=== PATIENT | female | born 1990 | race American Indian/Alaskan Native ===

== ENCOUNTER 2023-09-15 08:00 | Outpatient (CLI) | payer OTHER ==
[2023-09-15 17:08] LABS: BILIRUBIN,URINE NEGATIVE (NEGATIVE); GLUCOSE, URINE (UA) NEGATIVE (NEGATIVE); KETONES,URINE (UA) NEGATIVE (NEGATIVE); LEUKOCYTE ESTERASE, URINE NEGATIVE (NEGATIVE); NITRITE,URINE NEGATIVE (NEGATIVE); OCCULT BLOOD,URINE NEGATIVE (NEGATIVE); PROTEIN,URINE NEGATIVE (NEGATIVE); UROBILINOGEN,URINE 0.2 (NORMAL) E.U./dL (NORMAL)
[2023-09-15 17:15] LABS: CLARITY,URINE CLEAR (CLEAR)
[2023-09-15 17:53] LABS: BACTERIA,URINE None Seen /HPF (None Seen); RBC,URINE 0-5 /HPF (0-5); SQUAMOUS EPITHELIAL CELL,UR FEW Squamous (<= Few); WBC,URINE 0-3 /HPF (0-5)
[2023-09-15 17:54] LABS: AMORPHOUS SEDIMENT,UR Rare /LPF
== END 2023-09-15 23:59 | disposition home or self-care (01) ==
LOC: LAB.WC 08:00
PROVIDERS: ATTEND Obstetrics & Gynecology
DX: Z34.90 Encounter for supervision of normal pregnancy, unspecified, unspecified trimester (principal)
CPT/HCPCS: 81001; 87086

== ENCOUNTER 2023-10-02 18:36 | Outpatient (CLI) | payer OTHER ==
--- NOTE | 2023-10-03 14:42 | Ultrasound Report ---
PROCEDURE: OB Anatomy Scan INDICATIONS: SUPERVISION OF OUTSIDE/PRIOR DATING DATA: Last menstrual period (LMP): 05/11/2023. LMP-based estimated date of delivery (COMPA): 02/15/2024. First dating scan (date and location): 08/19/2023. Estimated date of delivery (COMPA) from first dating scan: 02/14/2024. The below data below was generated using the ultrasound COMPA of 02/14/2024 TECHNIQUE: Real-time scanning was performed of the fetus, with image documentation and biometric measurements. COMPARISON: None. FINDINGS: General: A single living intrauterine gestation is present. Presentation: Variable Placenta: Placental position is anterior, without previa. Amniotic fluid index: 15 cm, within normal limits for gestational age. heart rate: 150 beats per minute. Maternal cervical canal: 3.3 cm long; normal length is 2.5 cm or more. biometrics: Biparietal diameter: 5.0 cm 21 weeks 2 days 72nd percentile Head circumference: 19.1 cm 21 weeks 3 days 71st percentile Abdominal circumference: 17.3 cm 22 weeks 2 days a 7th percentile Femur length: 3.7 cm 21 weeks 4 days 73rd percentile Estimated gestational age from initial scan: 20 weeks 5 days Composite gestational age from present scan: 21 weeks 2 days Estimated weight and percentile: 458 g 95th percentile Measurement variability in biometric dating: +/- 10 days from 12-20 weeks gestation, +/- 2 weeks from 20-30 weeks gestation, +/- 3 weeks at 30 weeks gestation or later. Anatomic survey: Neuro: Ventricles are normal at less than 10 mm. Cisterna magna is normal at 3-11 mm. Cerebellum i s normal in size and morphology. Face: Nose and lips, facial profile are not well seen. Spine: Not well seen. Heart: 4-chambered heart is present, with normal ventricular outflow tracts. Diaphragm: Diaphragm is intact. Stomach: Left-sided stomach is present. Kidneys: No hydronephrosis. Normal is less than 5 mm in 2nd trimester, less than 7 mm in 3rd trimester. Cord: 3 vessel cord has orthotopic insertion. Bladder: Normal in size. Extremities: All 4 extremities are visualized. IMPRESSION: Single live intrauterine with ultrasound gestational age today of 21 weeks 2 days. face as well as spine are suboptimally evaluated. Reviewed by: Carole Esquivel MD on 10/03/2023 2:41 PM PST Approved by: Carole Esquivel MD on 10/03/2023 2:41 PM PST Station ID: [id number]
== END 2023-10-02 18:37 | disposition home or self-care (01) ==
LOC: DI 18:36
PROVIDERS: ATTEND Obstetrics & Gynecology
DX: Z34.92 Encounter for supervision of normal pregnancy, unspecified, second trimester (principal)

== ENCOUNTER 2023-10-08 13:32 | Outpatient (CLI) | payer OTHER ==
[2023-10-08 13:54] LABS: BASOPHILS # (AUTO) 0.1 10^3/uL (0.0-0.1); BASOPHILS % (AUTO) 0.5 %; EOSINOPHILS # (AUTO) 0.3 10^3/uL (0.0-0.7); EOSINOPHILS % (AUTO) 2.3 %; HCT - HEMATOCRIT 34.1 % (37.0-47.0); HGB - HEMOGLOBIN 10.7 g/dL (12.0-16.0); LYMPHOCYTES # (AUTO) 2.6 10^3/uL (1.5-3.5); MEAN CORPUSCULAR HEMOGLOBIN 22.4 pg (27.0-31.0); MEAN CORPUSCULAR HGB CONC 31.4 g/dL (32.0-36.0); MEAN CORPUSCULAR VOLUME 71.5 fL (81.0-99.0); MEAN PLATELET VOLUME 12.3 fL (7.9-10.8); MONOCYTES # (AUTO) 0.5 10^3/uL (0.0-1.0); MONOCYTES % (AUTO) 3.5 %; NEUTROPHILS # (AUTO) 9.5 10^3/uL (1.5-6.6); NEUTROPHILS % (AUTO) 73.2 %; PLT - PLATELET COUNT 268 10^3/uL (130-450); RED BLOOD COUNT 4.77 10^6/uL (4.20-5.40); RED CELL DISTRIBUTION WIDTH 16.1 % (12.0-15.0)
[2023-10-08 20:37] LABS: CHLAMYDIA TRACHOMATIS DNA NEGATIVE (NEGATIVE); NEISSERIA GONORRHOEAE DNA NEGATIVE (NEGATIVE); TRICHOMONAS VAGINALIS DNA NEGATIVE (NEGATIVE)
[2023-10-09 07:09] LABS: HBsAG SCREEN Negative (Negative); RPR Non Reactive (Non Reactive)
[2023-10-09 08:10] LABS: HCV AB Non Reactive (Non Reactive)
[2023-10-09 09:10] LABS: HIV SCREEN 4TH GENERATION Non Reactive (Non Reactive)
[2023-10-11 13:10] LABS: VARICELLA-ZOSTER AB IGG 2642 index (Immune >165)
== END 2023-10-08 13:33 | disposition home or self-care (01) ==
LOC: LAB 13:32
PROVIDERS: ATTEND Obstetrics & Gynecology
DX: Z34.90 Encounter for supervision of normal pregnancy, unspecified, unspecified trimester (principal)
CPT/HCPCS: 36415; 85025; 86592; 86762; 86787; 86803; 86850; 86900; 86901; 87340; 87389; 87491; 87591; 87661

== ENCOUNTER 2023-10-12 07:22 | Outpatient (CLI) | payer OTHER ==
--- NOTE | 2023-10-12 17:11 | Ultrasound Report ---
PROCEDURE: OB Follow up INDICATIONS: SUPERVISION OF OUTSIDE/PRIOR DATING DATA: Last menstrual period (LMP): 05/11/2023. LMP-based estimated date of delivery (COMPA): 02/15/2024. First dating scan (date and location): 08/19/2023, [facility]. Estimated date of delivery (COMPA) from first dating scan: 02/14/2024. TECHNIQUE: Real-time scanning was performed of the fetus, with image documentation and biometric measurements. Endovaginal scanning: Not performed. COMPARISON: None. FINDINGS: General: A single living intrauterine gestation is present. Presentation: head to maternal right Placenta: Placental position is anterior, without previa. Amniotic fluid index: 16.2 cm, within normal limits for gestational age. The largest pocket is 4.7 c m. heart rate: 150 beats per minute. Maternal cervical canal: 3.2 cm long; normal length is 2.5 cm or more. Other: The nose and lips have a normal appearance. The spine has a normal appearance. IMPRESSION: 1. Normal sonographic appearance of the nose, lips, and spine. Reviewed by: Jasmyne Delgado MD on 10/12/2023 5:09 PM PST Approved by: Jasmyne Delgado MD on 10/12/2023 5:09 PM PST Station ID: [id number]
== END 2023-10-12 07:23 | disposition home or self-care (01) ==
LOC: DI 07:22
PROVIDERS: ATTEND Obstetrics & Gynecology
DX: Z34.90 Encounter for supervision of normal pregnancy, unspecified, unspecified trimester (principal)

== ENCOUNTER 2023-11-10 11:22 | Outpatient (CLI) | payer OTHER ==
[2023-11-10 18:15] LABS: HCT - HEMATOCRIT 32.5 % (37.0-47.0); HGB - HEMOGLOBIN 9.9 g/dL (12.0-16.0); MEAN CORPUSCULAR HEMOGLOBIN 22.7 pg (27.0-31.0); MEAN CORPUSCULAR HGB CONC 30.5 g/dL (32.0-36.0); MEAN CORPUSCULAR VOLUME 74.4 fL (81.0-99.0); MEAN PLATELET VOLUME 12.3 fL (7.9-10.8); RED BLOOD COUNT 4.37 10^6/uL (4.20-5.40); RED CELL DISTRIBUTION WIDTH 16.3 % (12.0-15.0); WHITE BLOOD COUNT 12.2 x10^3/uL (4.8-10.8)
== END 2023-11-10 11:23 | disposition home or self-care (01) ==
LOC: LAB.N 11:22
PROVIDERS: ATTEND Obstetrics & Gynecology
DX: Z34.90 Encounter for supervision of normal pregnancy, unspecified, unspecified trimester (principal)
CPT/HCPCS: 36415; 82950; 85027

== ENCOUNTER 2023-11-26 10:54 | Outpatient (CLI) | payer OTHER ==
[2023-11-26 11:06] LABS: BASOPHILS % (AUTO) 0.2 %; EOSINOPHILS # (AUTO) 0.1 10^3/uL (0.0-0.7); HGB - HEMOGLOBIN 10.9 g/dL (12.0-16.0); LYMPHOCYTES # (AUTO) 2.7 10^3/uL (1.5-3.5); MEAN CORPUSCULAR HEMOGLOBIN 22.8 pg (27.0-31.0); MEAN CORPUSCULAR HGB CONC 31.1 g/dL (32.0-36.0); MEAN CORPUSCULAR VOLUME 73.1 fL (81.0-99.0); MEAN PLATELET VOLUME 11.1 fL (7.9-10.8); MONOCYTES # (AUTO) 0.7 10^3/uL (0.0-1.0); MONOCYTES % (AUTO) 5.2 %; NEUTROPHILS # (AUTO) 9.7 10^3/uL (1.5-6.6); NEUTROPHILS % (AUTO) 72.9 %; NRBC ABSOLUTE COUNT (AUTO) 0.02 x10^3/uL; NUCLEATED RED BLOOD CELLS AUTO 0.1 /100WBC; PLT - PLATELET COUNT 228 10^3/uL (130-450); RED BLOOD COUNT 4.79 10^6/uL (4.20-5.40); WHITE BLOOD COUNT 13.4 x10^3/uL (4.8-10.8)
[2023-11-26 11:57] LABS: FERRITIN 82.5 ng/mL (11.0-306.8)
== END 2023-11-26 10:55 | disposition home or self-care (01) ==
LOC: LAB 10:54
PROVIDERS: ATTEND Obstetrics & Gynecology
DX: O99.013 Anemia complicating pregnancy, third trimester (principal); D56.1 Beta thalassemia
CPT/HCPCS: 36415; 82728; 83540; 85025

== ENCOUNTER 2024-01-06 11:47 | Outpatient (CLI) | payer OTHER ==
--- NOTE | 2024-01-06 13:49 | Ultrasound Report ---
PROCEDURE: OB Follow up INDICATIONS: IUGR OUTSIDE/PRIOR DATING DATA: Last menstrual period (LMP): 05/11/2023. LMP-based estimated date of delivery (COMPA): 02/05/2024. First dating scan (date and location): 08/19/2023. Estimated date of delivery (COMPA) from first dating scan: 02/14/2024. The below data below was generated using the ultrasound COMPA of 02/14/2024 TECHNIQUE: Real-time scanning was performed of the fetus, with image documentation and biometric measurements. Endovaginal scanning: Not performed. COMPARISON: OB ultrasound 10/12/2023 FINDINGS: General: A single living intrauterine gestation is present. Presentation: Cephalic Placenta: Placental position is anterior, without previa. Amniotic fluid index: 17.6 cm, within normal limits for gestational age. heart rate: 155 beats per minute. Maternal cervical canal: 3.9 cm long; normal length is 2.5 cm or more. biometrics: Biparietal diameter: 8.4 cm, 33 weeks 6 days, 32nd percentile Head circumference: 31.3 cm, 35 weeks 0 days, 28th percentile Abdominal circumference: 30.1 cm, 34 weeks 1 day, 45th percentile Femur length: 6.5 cm, 33 weeks 4 days, 21st percentile Estimated gestational age from initial scan: 34 weeks 3 days Composite gestational age from present scan: 34 weeks 1 day Estimated weight and percentile: 2334 g 33rd percentile Measurement variability in biometric dating: +/- 10 days from 12-20 weeks gestation, +/- 2 weeks from 20-30 weeks gestation, +/- 3 weeks at 30 weeks gestation or more. Other: Not applicable. IMPRESSION: 1.Single live intrauterine with appropriate interval growth. 2.Amniotic fluid index is within normal limits. Reviewed by: Paxton Norris MD on 01/06/2024 1:48 PM PDT Approved by: Paxton Norris MD on 01/06/2024 1:48 PM PDT Station ID: [id number]
== END 2024-01-06 11:48 | disposition home or self-care (01) ==
LOC: DI 11:47
PROVIDERS: ATTEND Obstetrics & Gynecology
DX: Z34.93 Encounter for supervision of normal pregnancy, unspecified, third trimester (principal); Z87.59 Personal history of other complications of pregnancy, childbirth and the puerperium

== ENCOUNTER 2024-02-02 13:23 | Outpatient (CLI) | payer OTHER ==
[2024-02-02 13:42] LABS: HCT - HEMATOCRIT 33.6 % (37.0-47.0); HGB - HEMOGLOBIN 10.3 g/dL (12.0-16.0); MEAN CORPUSCULAR HEMOGLOBIN 22.8 pg (27.0-31.0); MEAN CORPUSCULAR HGB CONC 30.7 g/dL (32.0-36.0); MEAN CORPUSCULAR VOLUME 74.5 fL (81.0-99.0); MEAN PLATELET VOLUME 13.2 fL (7.9-10.8); RED BLOOD COUNT 4.51 10^6/uL (4.20-5.40); RED CELL DISTRIBUTION WIDTH 15.2 % (12.0-15.0)
[2024-02-02 13:51] LABS: ALBUMIN 3.3 g/dL (3.2-5.5); ALBUMIN/GLOBULIN RATIO 1.3 (1.0-2.2); BILIRUBIN,TOTAL 0.6 mg/dL (0.2-1.0); CALCIUM 9.2 mg/dL (8.5-10.3); CREATININE 0.7 mg/dL (0.6-1.3); POTASSIUM 4.3 mmol/L (3.5-4.5); TOTAL PROTEIN 5.9 g/dL (6.4-8.9)
[2024-02-02 14:05] LABS: CREATININE,URINE 27.7 mg/dL; TOTAL PROTEIN,URINE TIMED < 4 mg/dL
== END 2024-02-02 13:24 | disposition home or self-care (01) ==
LOC: LAB 13:23
PROVIDERS: ATTEND Obstetrics & Gynecology
DX: R03.0 Elevated blood-pressure reading, without diagnosis of hypertension (principal)
CPT/HCPCS: 36415; 80053; 82570; 84156; 85027

== ENCOUNTER 2024-02-03 04:35 | Inpatient (IN) | payer OTHER ==
[2024-02-03] MEDS ORDERED: LACTATED RINGERS 1,000 ML IV PRN (06:47)
[2024-02-03] MEDS ORDERED: METHYLERGONOVINE 0.2 MG/ML VIAL IM PRN (06:47)
[2024-02-03] MEDS ORDERED: fentaNYL 100 MCG/2 ML VIAL IVP PRN (06:47)
[2024-02-03] MEDS ORDERED: LABETALOL 20 MG/4 ML SYRINGE IVP PRN ×3 (06:47)
[2024-02-03] MEDS ORDERED: hydrALAZINE INJ 20 MG/ML VIAL IVP PRN ×2 (06:47)
[2024-02-03] MEDS ORDERED: lidocaine 1% 20 ML MDV ID PRN (06:47)
[2024-02-03] MEDS ORDERED: OXYTOCIN 10 UNIT/ML VIAL IM PRN (06:47)
[2024-02-03] MEDS ORDERED: SODIUM CHLORIDE FLUSH 0.9% 10 ML SYRINGE IVP PRN (06:47)
[2024-02-03] MEDS ORDERED: TRANEXAMIC ACID IN NACL 1,000 MG/100 ML BAG IV PRN (06:47)
[2024-02-03] MEDS ORDERED: miSOPROStoL 200 MCG TABLET BC PRN (06:47)
[2024-02-03] MEDS ORDERED: miSOPROStoL 200 MCG TABLET PR PRN (06:47)
[2024-02-03] MEDS ORDERED: CARBOPROST TROMETHAMINE 250 MCG/ML VIAL IM PRN (06:47)
[2024-02-03] MEDS ORDERED: OXYTOCIN/SODIUM CHLORIDE 500 ML IV PRN (06:47)
[2024-02-03] MEDS ORDERED: NIFEdipine 10 MG CAPSULE PO PRN (06:47)
--- NOTE | 2024-02-03 06:58 | HISTORY & PHYSICAL EXAMINATION ---
Admit History - Visit Reason Visit Reason: Contractions - : 2 Parity: 1 Care: positive: [facility] - Mother's Labs Mother's Blood Type: positive: B Mother's RH: positive: Positive GBS: positive: Group B Step Negative Rubella Status: positive: Immune - Other Maternal History Other Maternal History: Med: B thalassemia triat Surg: [place] teeth Fam: Noncontributory Social: , denies FRED, AD - HPI Diagnosis/Indication for NST: labor Vital Signs Temperature 98.2 F 02/03/24 04:52 Heart Rate 68 02/03/24 04:52 Respiratory Rate 18 02/03/24 04:52 Blood Pressure 139/85 H 02/03/24 04:52 Temperature 98.2 F 02/03/24 04:52 Heart Rate 57 L 02/03/24 06:08 Respiratory Rate 16 02/03/24 06:08 Blood Pressure 133/71 H 02/03/24 06:08 O2 Saturation If not protocol: Oxygen Flow, liters/minute - NST Procedure EFM: 130s, moderate variability, positive 15x15 accelerations, no decelerations [place]: q4m Cat 1/NST reactive Performed and read 02/03/24 Meds/Allgy - Allergies Allergies/Adverse Reactions: Allergies Allergy/AdvReac Type Severity Reaction Status Date / Time amoxicillin AdvReac Intermediate Hives Verified 02/03/24 07:13 Physical - Abdominal Exam Vital Signs: Temp Pulse Resp BP Pulse Ox O2 Flow Rate 98.2 F 57 L 16 133/71 H 02/03/24 04:52 02/03/24 06:08 02/03/24 06:08 02/03/24 06:08 Contraction Frequency (min/apart): 4 Contraction Intensity: positive: Mild to moderate Uterine Resting Tone: positive: Soft - Monitoring Heart Rate Baseline: 130 Strip Review: positive: Category I - Presentation Presentation: positive: Vertex (EFW 3000g, placenta anterior) - Vaginal Exam Membranes: positive: Membranes intact Dilation (in cm): 6 Effacement (%): 100 Station: positive: -2 Cervical Position: positive: Midposition Plan for Labor - Plan For Labor I expect patient to be DC'd or transferred within 96 hours.: Yes Plan for Labor: 33yo at 38.2w by LMP consistent with 14w US admitted in active labor, also with gestational hypertension - Admit to FBP - CBC, CMP, T&S, PCR - complicated by beta thalassemia trait, history of IUGR, anemia - GBS negative, anticipate this morning. May have epidural as requested
[2024-02-03] MEDS ORDERED: SODIUM CHLORIDE FLUSH 0.9% 10 ML SYRINGE IVP SCH (07:00)
--- NOTE | 2024-02-03 08:57 | PHARMACY PROGRESS NOTE ---
- Best Possible Medication History Admit Date and Time: 02/03/24 0647 Processed by: Pharmacy Medications reviewed in ED?: No Patient Interview: Pt unable to participate Secondary Source(s): Insurance records (No fill data through [employer]) As the person ultimately responsible for medication therapy, providers are able to order a medication from an existing home medication list in [facility] via the "Reconcile Routine" prior to Confirmation of that medication by computer network support specialist. Such practice is discouraged except when the physician, in their clinical judgment, deems that a medical need exists for a medication without regard to previous use.
[2024-02-03 09:01] LABS: BASOPHILS # (AUTO) 0.1 10^3/uL (0.0-0.1); BASOPHILS % (AUTO) 0.4 %; EOSINOPHILS # (AUTO) 0.1 10^3/uL (0.0-0.7); EOSINOPHILS % (AUTO) 0.6 %; HCT - HEMATOCRIT 34.2 % (37.0-47.0); HGB - HEMOGLOBIN 10.4 g/dL (12.0-16.0); LYMPHOCYTES # (AUTO) 2.7 10^3/uL (1.5-3.5); LYMPHOCYTES % (AUTO) 19.1 %; MEAN CORPUSCULAR HEMOGLOBIN 22.5 pg (27.0-31.0); MEAN CORPUSCULAR HGB CONC 30.4 g/dL (32.0-36.0); MEAN CORPUSCULAR VOLUME 73.9 fL (81.0-99.0); MEAN PLATELET VOLUME 13.1 fL (7.9-10.8); MONOCYTES # (AUTO) 0.6 10^3/uL (0.0-1.0); MONOCYTES % (AUTO) 4.5 %; NEUTROPHILS # (AUTO) 10.7 10^3/uL (1.5-6.6); NRBC ABSOLUTE COUNT (AUTO) 0.03 x10^3/uL; NUCLEATED RED BLOOD CELLS AUTO 0.2 /100WBC; PLT - PLATELET COUNT 158 10^3/uL (130-450); RED BLOOD COUNT 4.63 10^6/uL (4.20-5.40); RED CELL DISTRIBUTION WIDTH 15.4 % (12.0-15.0); WHITE BLOOD COUNT 14.3 x10^3/uL (4.8-10.8)
[2024-02-03 09:08] LABS: ALBUMIN 3.3 g/dL (3.2-5.5); ALBUMIN/GLOBULIN RATIO 1.2 (1.0-2.2); BILIRUBIN,TOTAL 0.6 mg/dL (0.2-1.0); CALCIUM 9.1 mg/dL (8.5-10.3); CREATININE 0.8 mg/dL (0.6-1.3); POTASSIUM 4.2 mmol/L (3.5-4.5); TOTAL PROTEIN 6.1 g/dL (6.4-8.9)
[2024-02-03 13:17] VITALS: O2SAT 98
[2024-02-03 13:27] VITALS: BP 124/83
--- NOTE | 2024-02-03 21:53 | DISCHARGE SUMMARY ---
Discharge Summary Admit Date: 02/03/24 Discharge Date: 02/03/24 Discharging Provider: Annika Hargrove MD Code Status: Attempt Resuscitation Condition at Discharge: Good - DIAGNOSES Admission Diagnoses: labor at term. Discharge Diagnoses with Status of Each Condition: not in labor - HPI History of Present Illness: presented and was 4-6 cm dilated with painful contractions. - HOSPITAL COURSE Hospital Course: patient was observed and seemed to be in labor. then made not progress. offered to have labor augmentation with pitocin or AROM or go home. She wanted to go home. - ALLERGIES Allergies/Adverse Reactions: Allergies Allergy/AdvReac Type Severity Reaction Status Date / Time amoxicillin AdvReac Intermediate Hives Verified 02/03/24 07:13 - MEDICATIONS Home Medications: Ambulatory Orders Medication Instructions Recorded Confirmed Home Medications Unobtainable 02/03/24 02/03/24 [HOME MEDICATIONS UNOBTAINABLE] - PHYSICAL EXAM AT DISCHARGE General Appearance: positive: No acute distress - LABS Result Diagrams: 02/03/24 08:18 02/03/24 08:18 - FOLLOW UP Follow Up: discharge home, f/u when she is in more active labor, AROM or if decreased movement. - TIME SPENT Time Spent in Discharge (Minutes): 10
== END 2024-02-03 15:00 | disposition home or self-care (01) | DRG 833 ==
LOC: WFO 04:35 → FBP 04:37 → WFO 06:46 → FBP 06:47
PROVIDERS: ADMIT Obstetrics & Gynecology; ATTEND Obstetrics & Gynecology
DX: O60.03 Preterm labor without delivery, third trimester (principal); Z3A.38 38 weeks gestation of pregnancy; O13.3 Gestational [pregnancy-induced] hypertension without significant proteinuria, third trimester; O99.013 Anemia complicating pregnancy, third trimester; D56.3 Thalassemia minor
CPT/HCPCS: 80053; 85025; 86850; 86900; 86901

== ENCOUNTER 2024-02-13 18:59 | Inpatient (IN) | payer OTHER ==
[2024-02-13] MEDS ORDERED: hydrALAZINE INJ 20 MG/ML VIAL IVP PRN ×2 (19:56)
[2024-02-13] MEDS ORDERED: miSOPROStoL 200 MCG TABLET BC PRN (19:56)
[2024-02-13] MEDS ORDERED: miSOPROStoL 200 MCG TABLET PR PRN (19:56)
[2024-02-13] MEDS ORDERED: NIFEdipine 10 MG CAPSULE PO PRN (19:56)
[2024-02-13] MEDS ORDERED: TERBUTALINE 1 MG/ML VIAL SUBQ PRN (19:56)
[2024-02-13] MEDS ORDERED: LABETALOL 20 MG/4 ML SYRINGE IVP PRN ×3 (19:56)
[2024-02-13] MEDS ORDERED: TRANEXAMIC ACID IN NACL 1,000 MG/100 ML BAG IV PRN (19:56)
[2024-02-13] MEDS ORDERED: OXYTOCIN 10 UNIT/ML VIAL IM PRN (19:56)
[2024-02-13] MEDS ORDERED: SODIUM CHLORIDE FLUSH 0.9% 10 ML SYRINGE IVP PRN (19:56)
[2024-02-13] MEDS ORDERED: METHYLERGONOVINE 0.2 MG/ML VIAL IM PRN (19:56)
[2024-02-13] MEDS ORDERED: LACTATED RINGERS 1,000 ML IV PRN (19:56)
[2024-02-13] MEDS ORDERED: ONDANSETRON ODT 4 MG TABLET TL PRN (19:56)
[2024-02-13 20:12] LABS: RUPTURE OF MEMBRANES PLUS POSITIVE (NEGATIVE)
--- NOTE | 2024-02-13 20:13 | HISTORY & PHYSICAL EXAMINATION ---
Admit History - Visit Reason Visit Reason: Membranes rupture - : 2 Parity: 1 Risk/History: positive: Other (SGA ) Complications This : positive: Other (Anemia) Smoking Status: Never smoker - Mother's Labs Mother's Blood Type: positive: B Mother's RH: positive: Positive GBS: positive: Group B Step Negative Rubella Status: positive: Immune - Other Maternal History Other Maternal History: Assessment and plan G2, P1 at 39 weeks gestation in term labor Term labor -Admit to L&D, admit labs, epidural at patient's request SROM -Fluid and blood admixture, too much blood for ROM plus, although not appearing grossly ruptured. With increase in discharge/bleeding and increase in frequency and intensity of contractions, likely ruptured. Regardless, is likely laboring and if necessary will perform AROM History of forceps assisted vaginal delivery -Will monitor second stage Beta thalassemia trait -CBC pending. Most recent H/H 10.4/34% History of SGA : -Previous 2740 g at 40 weeks -Currently 2334 g at 34 weeks normal normal growth HPI: Patient is a 33-year-old G2, P1 at 39 weeks 5 days gestation. She has good movement. No LOWERY/BV or RUQP. Denies nausea and vomiting. Denies urinary urgency or dysuria. All other symptoms reviewed and were negative except per HPI. Course LMP: 05/11/23 COMPA by LMP: 02/15/24 US:08/19/23 - c/w dates Final COMPA: 02/15/24 sex: It's a BOY!!! FOB: Quintin Aronica Beta Thalasemia: Anemia with first . -Normal iron studies History of SGA 2740 g at 40 weeks. History of forcep delivery: Unsure of why, it did not seem like distress or protracted labor. 34-week ultrasound: EFW 2334 g, 33rd percentile. Pre- Weight: 167 BMI: 29.69 Blood type: B+ Antibody: negative CBC: PLT 268 HCT 34.1 HGB 10.7 RUB: immune VZV: immune HBsAg: negative HepC: N-R RPR/AB-EIA: N-R HIV: N-R PAP: 01/27/2021 - normal per patient. Do if no records GC/CT: negative HSV: denies in self and partner Genetic testing:Declines after education. Covid: Multiple prior, last 2021 Flu:Flu shot this year. FAS: face and spine suboptimally viewed. Repeat showed normal structures. Placenta: Anterior without previa Cord:Three-vessel cord JASS:Normal EFW:458 g, 95th percentile 50gm OGCT: 115 TDAP: 11/26 Breast Pump: 11/26 3rd trimester 10.9/35.0/228 GBS: negative Delivery plan: Contraception:Partner vasectomy. Possible minipill while he waits. PMH Beta thalassemia trait PSH [place] teeth extraction OB History -0-0-1 1. 07/18/2020 40 weeks, , female, 6 pounds 1 ounce, forceps assisted vaginal delivery SH Denies tobacco, alcohol, drugs Family History Mother: Anemia, anxiety Sister: Anemia Maternal grandmother: Anxiety Allergies Amoxicillin: Rash Medications vitamins Physical exam: General: Alert, oriented, no acute distress Head: Normal cephalic atraumatic Eyes: PERRLA, extraocular motions intact. Respiratory: Normal rate of respiration. No accessory muscle use, normal respiratory effort. Cardiovascular: Regular rate and rhythm Abdomen: Gravid, nontender, nondistended Extremities: Normal range of motion Neuro: Oriented x3. Normal movements Psych: Appropriate mood and affect. Normal judgment and insight SVE: 6/70/-2 FHT: 145 beats per baseline, moderate variability, accelerations present, no decelerations. [place]: 2 to 3 minutes SSE: Moderate amount of blood and small clots, no active bleeding. - HPI Vital Signs Temperature 98.2 F 02/13/24 19:17 Heart Rate 71 02/13/24 19:17 Respiratory Rate 02/13/24 19:17 Blood Pressure 150/86 H 02/13/24 19:17 Temperature 98.2 F 02/13/24 19:17 Heart Rate 71 02/13/24 19:17 Respiratory Rate 02/13/24 19:17 Blood Pressure 150/86 H 02/13/24 19:17 O2 Saturation If not protocol: Oxygen Flow, liters/minute Meds/Allgy - Home Medications Home Medications: Ambulatory Orders Medication Instructions Recorded Confirmed Home Medications Unobtainable 02/03/24 02/03/24 [HOME MEDICATIONS UNOBTAINABLE] - Allergies Allergies/Adverse Reactions: Allergies Allergy/AdvReac Type Severity Reaction Status Date / Time amoxicillin AdvReac Intermediate Hives Verified 02/03/24 07:13 Physical - Abdominal Exam Vital Signs: Temp Pulse Resp BP Pulse Ox O2 Flow Rate 98.2 F 71 19 150/86 H 02/13/24 19:17 02/13/24 19:17 02/13/24 19:17 02/13/24 19:17 Plan for Labor - Plan For Labor I expect patient to be DC'd or transferred within 96 hours.: Yes
[2024-02-13] MEDS: SODIUM CHLORIDE FLUSH 0.9% 10 ML SYRINGE IVP SCH (20:29)
[2024-02-13 20:31] LABS: BASOPHILS % (AUTO) 0.3 %; EOSINOPHILS # (AUTO) 0.1 10^3/uL (0.0-0.7); EOSINOPHILS % (AUTO) 0.7 %; HCT - HEMATOCRIT 34.1 % (37.0-47.0); HGB - HEMOGLOBIN 10.7 g/dL (12.0-16.0); LYMPHOCYTES # (AUTO) 2.6 10^3/uL (1.5-3.5); LYMPHOCYTES % (AUTO) 17.8 %; MEAN CORPUSCULAR HEMOGLOBIN 22.6 pg (27.0-31.0); MEAN CORPUSCULAR HGB CONC 31.4 g/dL (32.0-36.0); MEAN CORPUSCULAR VOLUME 72.1 fL (81.0-99.0); MONOCYTES % (AUTO) 6.5 %; NEUTROPHILS # (AUTO) 11.1 10^3/uL (1.5-6.6); NEUTROPHILS % (AUTO) 74.4 %; NRBC ABSOLUTE COUNT (AUTO) 0.03 x10^3/uL; NUCLEATED RED BLOOD CELLS AUTO 0.2 /100WBC; PLT - PLATELET COUNT 154 10^3/uL (130-450); RED BLOOD COUNT 4.73 10^6/uL (4.20-5.40); RED CELL DISTRIBUTION WIDTH 14.8 % (12.0-15.0); WHITE BLOOD COUNT 14.9 x10^3/uL (4.8-10.8)
[2024-02-13] MEDS: LACTATED RINGERS 1,000 ML IV SCH (20:32)
[2024-02-13] MEDS: fentaNYL 100 MCG/2 ML VIAL IVP PRN (21:50)
[2024-02-13] MEDS: OXYTOCIN/SODIUM CHLORIDE 500 ML IV PRN (21:54)
[2024-02-13] MEDS: lidocaine 1% 20 ML MDV ID PRN (22:05)
[2024-02-13] MEDS: ACETAMINOPHEN 500 MG TABLET PO PRN (22:16)
--- NOTE | 2024-02-13 22:32 | DELIVERY NOTE ---
Delivery Note - Labor Labor: positive: Spontaneous, Augmented by ARM - Nuchal Cord Nuchal Cord: positive: None - Anesthetic Anesthetic: positive: Lidocaine - 1% plain - Amniotic Fluid Description Amniotic Fluid Description: positive: Moderate meconium - Laceration Laceration: positive: 1st degree - Suture Suture Type: positive: Vicryl Suture Size: positive: 2-0 - Delivery Outcome Delivery Outcome: positive: Livebirth - [place] : positive: Placed in direct skin contact with mother sex: positive: Male - Cord Cord: positive: 3 vessels - Placenta Placenta: positive: Intact - Estimated Blood Loss Estimated Blood Loss (in cc): 1,000 - Post Delivery Events Post Delivery Events: positive: Hemorrhage - Delivery Comments (Free Text/Narrative) Delivery Comments (Free Text/Narrative): Preoperative Diagnoses Term labor 39 weeks gestation Postoperative Diagnoses Same Delivery of live whitaker hemorrhage Summary Patient presented in active labor at 6 cm harish every 2 minutes. She initially thought she was ruptured, but was later found to have an intact bag. She did have some vaginal bleeding although not heavy. Fetus remained category 1 throughout until pushing. She progressed quickly through the evening until 9 cm and amniotomy was performed. She then progressed to complete and ready to deliver. She desired epidural for pain control, however anesthesia was unable to get here in time for her to get relief. Delivery Summary: Patient was placed in the dorsal lithotomy position. Upon maternal pushing the head was delivered atraumatically followed by the anterior shoulder, posterior shoulder, then the remainder of the infant's body. A male infant was delivered with APGARS of 9 at 1 minute and 9 at 5 minutes. The infant was placed on its mother's chest . After the cord finished pulsating, the umbilical cord was clamped times two and cut. The placenta delivered intact with three vessel cord. While waiting for delivery of the placenta, she had a small, but persistent bleed, and after delivery did not have any additional hemorrhage. Placenta was not sent to pathology. Thirty units of Pitocin were added to the IV fluid and allowed to run freely. Uterine massage was performed until uterus was deemed firm. Inspection of the perineum noted a first-degree midline laceration largely in the area of previous scar tissue. This was repaired with a running suture of 3- 0 Vicryl. Upon re-inspection the patient was hemostatic. Uterus again massaged and found to be firm. Needle and sponge counts were correct. Patient was stable and allowed to recover in L&D room. Infant was stable and remained in room with mother. weight:3529g
[2024-02-13] MEDS ORDERED: DOCUSATE SODIUM 100 MG CAPSULE PO PRN (23:16)
[2024-02-13] MEDS ORDERED: ONDANSETRON 4 MG/2 ML VIAL IVP PRN (23:16)
[2024-02-13] MEDS ORDERED: CALCIUM CARBONATE CHEW 500 MG TABLET PO PRN (23:16)
[2024-02-13] MEDS ORDERED: SIMETHICONE CHEW 80 MG TABLET PO PRN (23:16)
[2024-02-14] MEDS: LACTATED RINGERS 1,000 ML IV SCH (00:04)
[2024-02-14] MEDS: IBUPROFEN 600 MG TABLET PO SCH (00:08)
[2024-02-14] MEDS: ACETAMINOPHEN 500 MG TABLET PO SCH (06:21)
[2024-02-14 09:39] LABS: BASOPHILS # (AUTO) 0.1 10^3/uL (0.0-0.1); BASOPHILS % (AUTO) 0.3 %; EOSINOPHILS # (AUTO) 0.1 10^3/uL (0.0-0.7); EOSINOPHILS % (AUTO) 0.3 %; HCT - HEMATOCRIT 25.2 % (37.0-47.0); HGB - HEMOGLOBIN 7.9 g/dL (12.0-16.0); LYMPHOCYTES # (AUTO) 2.1 10^3/uL (1.5-3.5); LYMPHOCYTES % (AUTO) 14.6 %; MEAN CORPUSCULAR HEMOGLOBIN 22.8 pg (27.0-31.0); MEAN CORPUSCULAR HGB CONC 31.3 g/dL (32.0-36.0); MEAN CORPUSCULAR VOLUME 72.8 fL (81.0-99.0); MEAN PLATELET VOLUME 13.2 fL (7.9-10.8); MONOCYTES # (AUTO) 0.7 10^3/uL (0.0-1.0); NEUTROPHILS # (AUTO) 11.6 10^3/uL (1.5-6.6); NEUTROPHILS % (AUTO) 79.5 %; NRBC ABSOLUTE COUNT (AUTO) 0.03 x10^3/uL; NUCLEATED RED BLOOD CELLS AUTO 0.2 /100WBC; PLT - PLATELET COUNT 142 10^3/uL (130-450); RED BLOOD COUNT 3.46 10^6/uL (4.20-5.40); RED CELL DISTRIBUTION WIDTH 14.6 % (12.0-15.0); WHITE BLOOD COUNT 14.6 x10^3/uL (4.8-10.8)
[2024-02-14 17:15] VITALS: O2SAT 97
--- NOTE | 2024-02-14 17:32 | PROVIDER PROGRESS NOTE ---
Subjective - Subjective Subjective: Subjective Patient reports she is doing well. Lochia appropriate. Denies heavy bleeding. Ambulating. Pelvic and abdominal pain well-controlled. Tolerating oral intake. Diet: Regular. Voiding without difficulty. Passing flatus. Denies BM. Patient is bonding with baby in room Breast feeding going well. Denies feeling lightheaded, dizzy or excessively fatigued. Objective General: Alert, oriented, no apparent distress. Cardiovascular: Regular rate. Regular rhythm. Lungs: No increased work of breathing. Abdomen: Uterus firm. Below umbilicus. No guarding or rebound. Extremities: No pain on palpation. No cords palpated. Distal pulses intact. Assessment and Plan day 1. -Routine care -Anticipate discharge tomorrow Acute on chronic blood loss anemia -Appropriate hemoglobin drop, but to 7.9. Will recheck in the morning. -Asymptomatic. Beta thalassemia trait -As above Objective - Vital Signs/Intake & Output Vital Signs: Vital Signs x48h Temp Pulse Resp BP Pulse Ox 02/14/24 17:10 97.7 F 75 17 140/81 H 97 02/14/24 12:03 97.7 F 60 16 144/91 H 98 02/14/24 11:45 97.7 F 58 L 16 163/90 H 99 Intake & Output: Intake & Output 02/11/24 02/12/24 02/13/24 02/14/24 23:59 23:59 23:59 23:59 Intake Total 1892.500 Output Total 700 Balance 1192.500 - Lab Results Fish Bones: 02/14/24 09:23 Other Labs: Lab Results x24hrs 02/14/24 02/13/24 02/13/24 Range/Units 09:23 20:10 20:10 WBC 14.6 H 14.9 H (4.8-10.8) x10^3/uL RBC 3.46 L 4.73 (4.20-5.40) 10^6/uL Hgb 7.9 L 10.7 L (12.0-16.0) g/dL Hct 25.2 L 34.1 L (37.0-47.0) % MCV 72.8 L 72.1 L (81.0-99.0) fL MCH 22.8 L 22.6 L (27.0-31.0) pg MCHC 31.3 L 31.4 L (32.0-36.0) g/dL RDW 14.6 14.8 (12.0-15.0) % Plt Count 142 154 (130-450) 10^3/uL MPV 13.2 H 13.0 H (7.9-10.8) fL Neut # (Auto) 11.6 H 11.1 H (1.5-6.6) 10^3/uL Lymph # (Auto) 2.1 2.6 (1.5-3.5) 10^3/uL [place]ette # (Auto) 0.7 1.0 (0.0-1.0) 10^3/uL Eos # (Auto) 0.1 0.1 (0.0-0.7) 10^3/uL Baso # (Auto) 0.1 0.0 (0.0-0.1) 10^3/uL Absolute Nucleated RBC 0.03 0.03 x10^3/uL Nucleated RBC % 0.2 0.2 /100WBC Membranes Rupture (NEGATIVE) Blood Type B POSITIVE Antibody Screen NEGATIVE 02/13/24 Range/Units 19:39 WBC (4.8-10.8) x10^3/uL RBC (4.20-5.40) 10^6/uL Hgb (12.0-16.0) g/dL Hct (37.0-47.0) % MCV (81.0-99.0) fL MCH (27.0-31.0) pg MCHC (32.0-36.0) g/dL RDW (12.0-15.0) % Plt Count (130-450) 10^3/uL MPV (7.9-10.8) fL Neut # (Auto) (1.5-6.6) 10^3/uL Lymph # (Auto) (1.5-3.5) 10^3/uL [place] # (Auto) (0.0-1.0) 10^3/uL Eos # (Auto) (0.0-0.7) 10^3/uL Baso # (Auto) (0.0-0.1) 10^3/uL Absolute Nucleated RBC x10^3/uL Nucleated RBC % /100WBC Membranes Rupture POSITIVE A (NEGATIVE) Blood Type Antibody Screen
[2024-02-15 06:25] LABS: BASOPHILS # (AUTO) 0.1 10^3/uL (0.0-0.1); BASOPHILS % (AUTO) 0.6 %; EOSINOPHILS # (AUTO) 0.2 10^3/uL (0.0-0.7); EOSINOPHILS % (AUTO) 1.6 %; HCT - HEMATOCRIT 25.2 % (37.0-47.0); HGB - HEMOGLOBIN 7.7 g/dL (12.0-16.0); LYMPHOCYTES # (AUTO) 3.7 10^3/uL (1.5-3.5); LYMPHOCYTES % (AUTO) 34.2 %; MEAN CORPUSCULAR HEMOGLOBIN 22.7 pg (27.0-31.0); MEAN CORPUSCULAR HGB CONC 30.6 g/dL (32.0-36.0); MEAN CORPUSCULAR VOLUME 74.3 fL (81.0-99.0); MONOCYTES # (AUTO) 0.5 10^3/uL (0.0-1.0); MONOCYTES % (AUTO) 4.4 %; NEUTROPHILS # (AUTO) 6.4 10^3/uL (1.5-6.6); NEUTROPHILS % (AUTO) 58.5 %; PLT - PLATELET COUNT 146 10^3/uL (130-450); RED BLOOD COUNT 3.39 10^6/uL (4.20-5.40); RED CELL DISTRIBUTION WIDTH 15.1 % (12.0-15.0); WHITE BLOOD COUNT 10.9 x10^3/uL (4.8-10.8)
[2024-02-15 07:39] VITALS: BP 122/81
--- NOTE | 2024-02-15 09:42 | Discharge Plan ---
Discharge Plan Problem Reviewed?: Yes Disposition: Home, Self Care Condition: Good Diet: Regular Activity Restrictions: No Restrictions Shower Restrictions: No Instruction Topics: Vaginal After, Depression No Smoking: If you smoke, Please STOP! Call for help. Follow-up with: GILA MENDEZ PA [Primary Care Provider] - Jeet Wagner MD [Provider Admit Priv/Credential] -
--- NOTE | 2024-02-15 09:46 | DISCHARGE SUMMARY ---
Discharge Summary Admit Date: 02/13/24 Discharge Date: 02/15/24 Discharging Provider: Jeet Wagner MD Code Status: Attempt Resuscitation Condition at Discharge: Good Discharge Disposition: 01 Home, Self Care - DIAGNOSES Admission Diagnoses: 39 weeks gestation Term labor Discharge Diagnoses with Status of Each Condition: Delivery of live whitaker Status post spontaneous vaginal delivery Acute on chronic blood loss anemia - HPI History of Present Illness: Subjective Patient reports she is doing well. Lochia appropriate. Denies heavy bleeding. Ambulating. Pelvic and abdominal pain well-controlled. Tolerating oral intake. Diet: Regular. Voiding without difficulty. Passing flatus. Denies BM. Patient is bonding with baby in room Breast feeding going well. Denies feeling lightheaded, dizzy or excessively fatigued. Objective General: Alert, oriented, no apparent distress. Cardiovascular: Regular rate. Regular rhythm. Lungs: No increased work of breathing. Abdomen: Uterus firm. Below umbilicus. No guarding or rebound. Extremities: No pain on palpation. No cords palpated. Distal pulses intact. - HOSPITAL COURSE Hospital Course: Patient was admitted at 39 weeks gestation in active labor at 6 cm. She was harish frequently and progressed quickly until 9 cm. She progressed rapidly and anesthesia was unavailable for epidural, so offered amniotomy to move towards delivery and patient excepted. Amniotomy showed moderate amount of meconium and patient quickly progressed and started pushing. Delivery was complicated by a small midline laceration, repaired at time of delivery, and a hemorrhage. Delivery of a healthy with Apgars of 9/9 with a weight of 3529 g. Patient and her were discharged on day 2 with no complications. - ALLERGIES Allergies/Adverse Reactions: Allergies Allergy/AdvReac Type Severity Reaction Status Date / Time amoxicillin AdvReac Intermediate Hives Verified 02/03/24 07:13 - MEDICATIONS Home Medications: Ambulatory Orders Medication Instructions Recorded Confirmed Pnv No.121/Iron/Folic Acid 1 each PO DAILY 02/13/24 02/13/24 [ Multivitamin Tablet] Ferrous Sulfate 325 mg PO BID #60 tab 02/15/24 - LABS Result Diagrams: 02/15/24 06:17 - FOLLOW UP Follow Up: With [facility] women's care in 1 to 2 weeks. - TIME SPENT Time Spent in Discharge (Minutes): 20
--- NOTE | 2024-02-15 12:41 | Labor Flowsheet ---
Labor Flowsheet Datetime Report Generated by CPN: 02/15/2024 12:40 Datetime: 02/15/2024 07:09 VITAL SIGNS NBP Sys/Mily/Mean (mmHg): 122 : 81 : 89 Pulse: 64 Datetime: 02/15/2024 07:00 Stage of : Datetime: 02/13/2024 21:44 SpO2 (%): 100 Datetime: 02/13/2024 21:40 FHR Baseline Rate : 145 Datetime: 02/13/2024 21:39 LaborFlag: Labor Datetime: 02/13/2024 21:36 Pushing Position: Pushing Left Side Pushing Progress: with Pushing Datetime: 02/13/2024 21:30 UTERINE ACTIVITY Monitor Mode: External Frequency (min): 1-2 Quality: Moderate Duration (sec): 70-80 Pattern: Tachysystole: > 5 Contractions in 10 Minutes Resting Tone (Palpate): Relaxed ASSESSMENT A Monitor Mode: External US Variability: Moderate 6-25 bpm Accelerations: 15X15 Decelerations: None Category: Category II Datetime: 02/13/2024 21:29 VAGINAL EXAM Dilatation (cm): 10.0 Effacement (%): 100 Station: 1 Exam by: Kari [employer] 2 Pushing: Urge to Push; Involuntary Pushing Datetime: 02/13/2024 21:28 Membrane Status: Meconium Membranes Ruptured Date/Time: 02/13/2024 21:28 Membranes Rupture Method: Artificial Amniotic Fluid Color: Heavy Meconium Amniotic Fluid Amount: Moderate Amniotic Fluid Odor: Normal Vaginal Exam Comments: Dr. Wagner Datetime: 02/13/2024 21:04 Pain Assessment Comments: Nitrous oxide given Datetime: 02/13/2024 21:01 Oxygen Method: Room Air Datetime: 02/13/2024 20:57 Cervix, Consistency: Moderate Cervix, Position: Anterior Presentation 'A': Cephalic Datetime: 02/13/2024 20:51 Patient Care Comments: Pt sitting on the toilet at this time Datetime: 02/13/2024 20:32 PATIENT CARE IV/Blood Work: IV Infusing per Order; New IV Bag Hung Datetime: 02/13/2024 20:00 PAIN Pain Scale: 6 Pain Presence: Intermittent Pain Type: Contraction Pain Location: Abdomen MATERNAL ASSESSMENT Level of Consciousness: Alert DTR's/Clonus: DTRs 2+ Headache: Denies Nausea/Vomiting: Denies Comfort Measures: Breathing/Relaxation Datetime: 02/03/2024 13:30 Monitor Interventions for UA: IUPC Inserted Datetime: 02/03/2024 12:30 FHR Baseline Changes: No Baseline Change Datetime: 02/03/2024 11:26 Comments: broken tracing due to maternal movement Datetime: 02/03/2024 09:30 Monitor Interventions for FHR: Ultrasound Adjusted Datetime: 02/03/2024 07:20 COMMUNICATION Communication: RN at Bedside Communication Comments: pt transfered from triage to Room 2103 Datetime: 02/03/2024 05:01 Respirations: 18 Temperature (C): 36.7 Temperature Route: Oral
== END 2024-02-15 12:30 | disposition home or self-care (01) | DRG 806 ==
LOC: WFO 18:59 → FBP 19:01 → WFO 20:05
PROVIDERS: ADMIT Obstetrics & Gynecology; ATTEND Obstetrics & Gynecology
PROC: 0HQ9XZZ Repair Perineum Skin, External Approach (ICD-10-PCS; principal; 2024-02-13)
PROC: 10E0XZZ Delivery of Products of Conception, External Approach (ICD-10-PCS; 2024-02-13)
PROC: 10907ZC Drainage of Amniotic Fluid, Therapeutic from Products of Conception, Via Natural or Artificial Opening (ICD-10-PCS; 2024-02-13)
DX: O70.0 First degree perineal laceration during delivery (principal); D62 Acute posthemorrhagic anemia; Z37.0 Single live birth; Z3A.39 39 weeks gestation of pregnancy; O77.0 Labor and delivery complicated by meconium in amniotic fluid; O99.02 Anemia complicating childbirth; D56.3 Thalassemia minor; O90.81 Anemia of the puerperium; Z87.59 Personal history of other complications of pregnancy, childbirth and the puerperium
CPT/HCPCS: 36415; 59025; 59409; 84112; 85025; 86850; 86900; 86901; 99215; A9270; J7120

== ENCOUNTER 2024-06-17 09:30 | Outpatient (CLI) | payer OTHER | END 2024-06-17 09:31 | disposition home or self-care (01) | LOC: RT 09:30 | PROVIDERS: ATTEND Student in an Organized Health Care Education/Training Program | DX: R06.2 Wheezing (principal) | CPT/HCPCS: 94010; 94729 ==